=== PATIENT | female | born 1940 | race Caucasian/White ===

== ENCOUNTER 2023-01-15 09:17 | Outpatient (CLI) | payer MEDICARE ==
[2023-01-15] MEDS ORDERED: Magnevist 469MG/ML 20 ML VIAL ONE (15:30)
== END 2023-01-15 09:18 | disposition home or self-care (01) ==
LOC: CSHMRI 09:17
PROVIDERS: ATTEND Family Medicine
DX: G45.9 Transient cerebral ischemic attack, unspecified (principal); R20.2 Paresthesia of skin; D64.9 Anemia, unspecified
CPT/HCPCS: 70553; 82565; A9579